=== PATIENT | female | born 1975 | race Caucasian/White ===

== ENCOUNTER 2017-10-29 05:03 | Inpatient (IN) | payer BC ==
[2017-10-25 15:39] VITALS: BMI 25.6
[~2017-10-29 05:03] MED LIST: BUPIVACAINE HCL/PF 0.5% (5MG/ML) 10 ML VIAL IJ ONE; ceFAZolin SODIUM 1 GM VIAL IVPB ONE
[2017-10-29] MEDS ORDERED: BUPIVACAINE HCL/PF 0.5% (5MG/ML) 10 ML VIAL ONE (11:24)
[2017-10-29] MEDS ORDERED: ceFAZolin SODIUM 1 GM VIAL IVPB ONE (13:43)
[2017-10-29] MEDS ORDERED: ONDANSETRON 4 MG/2 ML VIAL IVPUSH PRN ×4 (15:06→18:08)
[2017-10-29] MEDS ORDERED: LACTATED RINGERS SOLUTION 1,000 ML IV SCH ×2 (15:15→17:45)
[2017-10-29] MEDS ORDERED: GLYCOPYRROLATE 0.2 MG/1 ML VIAL ONE (16:59)
[2017-10-29] MEDS ORDERED: KETOROLAC TROMETHAMINE 30 MG/1 ML VIAL ONE (17:00)
[2017-10-29] MEDS ORDERED: NEOSTIGMINE METHYLSULFATE 0.5 MG/ML - 10 ML MDV ONE (17:00)
[2017-10-29] MEDS ORDERED: BUPIVACAINE HCL/PF 0.5% (5MG/ML) 10 ML VIAL IJ ONE (17:10)
[2017-10-29] MEDS ORDERED: PROMETHAZINE HCL 25 MG/1 ML VIAL IVPB PRN (17:40)
[2017-10-29] MEDS ORDERED: DEXAMETHASONE SOD PHOSPHATE 4 MG/1 ML VIAL IVPUSH PRN (17:40)
[2017-10-29] MEDS ORDERED: PROMETHAZINE HCL 25 MG/1 ML VIAL IVPUSH PRN (17:40)
[2017-10-29] MEDS ORDERED: HYDROmorphone *PCA* 10MG/50ML DISP.SYRIN PCA SCH (17:45)
[2017-10-29] MEDS ORDERED: ACETAMINOPHEN INJECTION 100 ML IVPB ONE (18:09)
[2017-10-29] MEDS ORDERED: HYDROmorphone *PCA* 10MG/50ML DISP.SYRIN PCA ONE (18:10)
--- NOTE | 2017-10-29 18:18 | OP ---
Operative Note - Note: Operative Date: 10/29/17 Pre-Operative Diagnosis: menorrhagia/fibroids Operation: robotic assisted total hysterectomy with bilateral salpingectomy Surgeon: Majo Wise Field Pipelines Supervisor: Tawanna Monson Anesthesiologist/RAISE MINER: Cande Pedersen MD Anesthesia: General Specimens Removed: uterus/cervix, bilateal salpingx Estimated Blood Loss (mls): 500 Drains, Volume Out (mls): 200 (carrillo) Fluid Volume Replaced (mls): 2,200 Operative Report Dictated: Yes
[2017-10-29] MEDS ORDERED: ACETAMINOPHEN 1000 MG/100 ML VIAL (NON FORMULARY) IVPB ONE (18:30)
--- NOTE | 2017-10-29 18:34 | HP ---
History & Physical Update - History History: No Change - Physical Physical: No Change - Assessment Assessment: No Change - Plan Plan: No Change
[2017-10-29 19:35] LABS: ANION GAP 9 (8-16); BLOOD UREA NITROGEN 9 mg/dL (7-18); CALCIUM 8.1 mg/dL (8.5-10.1); CHLORIDE 102 mmol/L (98-107); CO2 27 mmol/L (21-32); CREATININE 0.7 mg/dL (0.55-1.02); GLUCOSE,RANDOM 102 mg/dL (74-106); POTASSIUM 3.8 mmol/L (3.5-5.1); SODIUM 138 mmol/L (136-145)
[2017-10-29] MEDS: DEXTROSE 5%-LACTATED RINGERS 1,000 ML IV SCH (20:05)
[2017-10-29 20:50] LABS: MCH 31.9 pg (25.7-33.7)
[2017-10-29 20:53] LABS: HEMATOCRIT 43.8 % (32.4-45.2); HEMOGLOBIN 14.2 GM/dL (10.7-15.3); MCHC 32.4 g/dl (32.0-36.0); MEAN CELL VOLUME 98.5 fl (80-96); MEAN PLT VOLUME 10.2 fl (7.5-11.1); PLATELET COUNT 250 K/MM3 (134-434); RBC 4.45 M/mm3 (3.60-5.2); RDW 15.3 % (11.6-15.6); WHITE BLOOD COUNT 19.4 K/mm3 (4.0-10.0)
[2017-10-29 22:28] LABS: MACROCYTOSIS 1+; PLATELET ESTIMATE ADEQUATE; TEAR DROP CELLS 1+
[2017-10-29] MEDS ORDERED: SIMETHICONE 80 MG TAB.CHEW (FP) PO PRN (22:29)
[2017-10-29] MEDS ORDERED: diphenhydrAMINE HCL 25 MG CAPSULE (FP) PO PRN (22:30)
[2017-10-29] MEDS ORDERED: IBUPROFEN 800 MG/8 ML IJ IVPB PRN (22:31)
[2017-10-29] MEDS ORDERED: oxyCODONE HCL 5 MG TABLET PO PRN ×2 (22:36→22:37)
[2017-10-29] MEDS ORDERED: ACETAMINOPHEN 325 MG TABLET (FP) PO PRN ×2 (22:36→22:37)
[2017-10-29] MEDS: CEFAZOLIN 1 GM PUSH 1 GM/10 ML DISP.SYRIN IVPUSH SCH (22:41)
[2017-10-30] MEDS: CEFAZOLIN 1 GM PUSH 1 GM/10 ML DISP.SYRIN IVPUSH SCH ×3 (02:49→09:41)
[2017-10-30] MEDS: DEXTROSE 5%-LACTATED RINGERS 1,000 ML IV SCH (04:30)
[2017-10-30] MEDS: ACETAMINOPHEN 650 MG/20.3 ML ORAL SOLUTION (CUPS) PO SCH ×2 (06:50→12:13)
[2017-10-30 07:25] LABS: BASO % 0.3 % (0-2.0); EOS % 0.1 % (0-4.5); HEMATOCRIT 33.3 % (32.4-45.2); LYMPH % 13.2 % (8-40); MCH 32.2 pg (25.7-33.7); MEAN CELL VOLUME 97.5 fl (80-96); MEAN PLT VOLUME 9.2 fl (7.5-11.1); MONO % 6.9 % (3.8-10.2); NEUT % 79.5 % (42.8-82.8); PLATELET COUNT 201 K/MM3 (134-434); RBC 3.42 M/mm3 (3.60-5.2); RDW 14.9 % (11.6-15.6); WHITE BLOOD COUNT 11.1 K/mm3 (4.0-10.0)
[2017-10-30 09:07] LABS: CALCIUM 7.9 mg/dL (8.5-10.1); CHLORIDE 102 mmol/L (98-107); POTASSIUM 3.7 mmol/L (3.5-5.1); SODIUM 137 mmol/L (136-145)
[2017-10-30 09:10] LABS: ANION GAP 7 (8-16); BLOOD UREA NITROGEN 6 mg/dL (7-18); CO2 28 mmol/L (21-32); CREATININE 0.6 mg/dL (0.55-1.02); GLUCOSE,RANDOM 106 mg/dL (74-106)
--- NOTE | 2017-10-30 09:13 | PN ---
Progress Note (short form) - Note Progress Note: 42 yo status post robotic hysterectomy, seen and evaluated. Doing well. She's asking for regular diet. 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
[2017-10-30] MEDS ORDERED: ENOXAPARIN NA (PORCINE) 30 MG/0.3 ML DISP.SYRIN SQ SCH (10:00)
[2017-10-30] MEDS ORDERED: ENOXAPARIN NA (PORCINE) 40 MG/0.4 ML DISP.SYRIN SQ SCH (10:00)
[2017-10-30] MEDS ORDERED: PCA PUMP KEY 1 EACH EACH ONE (12:27)
--- NOTE | 2017-10-30 12:32 | PN ---
Progress Note (short form) - Note Progress Note: Anesthesia postop note and pain management follow up 42 y/o F s/p GA for robotic hysterectomy, dilaudid blacksmith helper for postop pain management POD#1, vss, aaox3, pain well controlled, no complaints. To be discharged home this afternoon No anesthesia complications.
--- NOTE | 2017-10-30 13:31 | SURG ---
Surgery Academic Records Specialist Note Academic Records Specialist: Tawanna Monson PA-C Date of Service: 10/29/17 Diagnosis: menorrhagia/fibroids Procedure: robotic assisted total hysterectomy with bilateral salpingectomy I was present for the entirety of the operative procedure. For further detail, please refer to operative report. Visit type - Case Type Case Type: Scheduled Admission - Emergency Emergency Visit: No - New patient This patient is new to me today: Yes Date on this admission: 10/29/17
[2017-10-30 14:11] VITALS: BP 86/50; PULSE 87; TEMP 98.4
--- NOTE | 2017-11-01 09:42 | PATH ---
Surgical Pathology Report Patient Name: PETER DELATORRE [facility]. Rec. #: [id number] /Age/Gender: 1975 (Age: 42) / F Account: [id number] Location: [facility]ENIOR Taken: 10/29/2017 Received: 10/30/2017 Reported: 11/01/2017 Physicians: Majo Wise M.D. Specimen(s) Received A: UTERUS AND CERVIX B: FALLOPIAN TUBE Clinical History None given Final Diagnosis A. UTERUS AND CERVIX, HYSTERECTOMY : UTERUS (WEIGHT: 208 G) SHOWING SECRETORY ENDOMETRIUM, LEIOMYOMAS AND ADENOMYOSIS. CERVIX WITH NO PATHOLOGIC FINDINGS. B. BILATERAL FALLOPIAN TUBES, SALPINGECTOMY: FALLOPIAN TUBES SHOWING HYDROSALPINX. Electronically Signed Sharmin Carey M.D. Gross Description A. Received in formalin labeled "uterus and cervix," is a 208 g uterus with an attached cervix and no attached adnexa. The specimen measures 10.5 cm from superior to inferior, 6.7 cm from left to right and 5.5 cm from anterior to posterior. The serosa is mary-burrell with adhesions. The attached cervix measures 3.3 cm in length and averages 4 cm in diameter. The ectocervix is pink-mary, smooth and glistening. The endocervix is unremarkable. The endometrial cavity measures 5 cm in length and 3 cm from cornu to cornu. The endometrium is red and measures up to 0.3 cm in thickness. The myometrium displays multiple intramural nodules, measuring up to 1.5 cm in greatest dimension. The cut surface of the nodules is mary, rubbery and displays whorled architecture. No areas of hemorrhage or necrosis are identified. The remaining myometrium is mary-pink and trabeculated, likely consistent with adenomyosis. The myometrium measures up to 2.6 cm in thickness. Fur Finisher Seamstress sections are submitted in 8 cassettes as follows: 1-anterior cervix; 2-posterior cervix; 6-7-dutjadbu endomyometrium; 2-0-qgutmmsod endomyometrium; 0-6-zbwgubtviw nodules. B. Received in formalin labeled "fallopian tubes," are 2 undesignated portions of fallopian tube measuring 4.3 and 5.5 cm in length. No fimbria are identified. The outer surfaces are mary-burrell with adhesions. Sectioning reveals dilated lumen. Fur Finisher Seamstress sections are submitted in 2 cassettes as follows: 1-shorter fallopian tube; 2-longer fallopian tube. DL10/30/201710/30/2017
== END 2017-10-30 17:37 | disposition home or self-care (01) | DRG 743 ==
LOC: JASUSAT 05:03 → JSAMEDAYSX 17:50 → J3W 20:42
PROVIDERS: ADMIT Obstetrics & Gynecology; ATTEND Obstetrics & Gynecology
PROC: 8E0W0CZ Robotic Assisted Procedure of Trunk Region, Open Approach (ICD-10-PCS; 2017-10-29)
PROC: 0UT90ZZ Resection of Uterus, Open Approach (ICD-10-PCS; principal; 2017-10-29 13:00)
PROC: 0UT70ZZ Resection of Bilateral Fallopian Tubes, Open Approach (ICD-10-PCS; 2017-10-29 13:00)
DX: D25.9 Leiomyoma of uterus, unspecified (principal)
CPT/HCPCS: 36415; 80048; 84703; 85025; 86850; 86900; 86901; 88305-TC; 88307-TC; 94760